=== PATIENT | male | born 1970 | race Caucasian/White ===

== ENCOUNTER 2020-08-13 08:03 | Day surgery (SDC) | payer OTHER, SELFPAY | END 2020-08-13 10:11 | disposition home or self-care (01) | LOC: MOR 08:03 → MFCC 08:05 → MOR 10:11 | PROVIDERS: ATTEND Internal Medicine Gastroenterology | DX: Z01.812 Encounter for preprocedural laboratory examination (principal); Z20.828 Contact with and (suspected) exposure to other viral communicable diseases; Z53.21 Procedure and treatment not carried out due to patient leaving prior to being seen by health care provider | CPT/HCPCS: U0003 ==